=== PATIENT | female | born 1985 | race Caucasian/White ===

== ENCOUNTER 2022-04-28 19:02 | Emergency (ER) | payer MEDICAID, OTHER ==
[~2022-04-28] VITALS: Ht 157.5 cm; Wt 77.3 kg
[~2022-04-28 19:02] MED LIST: NO MEDS
[2022-04-28 19:58] VITALS: BP 141/96
[2022-04-28] MEDS ORDERED: CYCLOBENZAPRINE HCL 10 MG TABLET PO ONE (21:15)
[2022-04-28] MEDS ORDERED: KETOROLAC TROMETHAMINE 60 MG/2 ML VIAL IM ONE (21:15)
[2022-04-28] MEDS ORDERED: CYCL-448 PO (21:23)
[2022-04-28] MEDS ORDERED: IBUP-2070 PO (21:23)
== END 2022-04-28 21:59 | disposition home or self-care (01) ==
LOC: EMS 19:04
DX: M54.2 Cervicalgia (principal); M54.50 Low back pain, unspecified; F41.9 Anxiety disorder, unspecified; Y99.8 Other external cause status; V89.2XXA Person injured in unspecified motor-vehicle accident, traffic, initial encounter; Y93.89 Activity, other specified; Y92.89 Other specified places as the place of occurrence of the external cause
CPT/HCPCS: 99283; 96372; J1885